=== PATIENT | female | born 1970 | race Caucasian/White ===

== ENCOUNTER → 2022-02-26 16:42 | Outpatient (BNVA) | payer OTHER, SELFPAY | PROVIDERS: PCP Internal Medicine; Visit Provider Psychiatry & Neurology Psychiatry | DX: F41.1 Generalized anxiety disorder (principal); F32.4 Major depressive disorder, single episode, in partial remission | CPT/HCPCS: 90833 ==

== ENCOUNTER → 2022-05-02 16:26 | Outpatient (BNVA) | payer OTHER, SELFPAY | PROVIDERS: PCP Internal Medicine; Visit Provider Psychiatry & Neurology Psychiatry | DX: F32.4 Major depressive disorder, single episode, in partial remission (principal) ==

== ENCOUNTER → 2022-07-08 15:26 | Outpatient (BNVA) | payer OTHER, SELFPAY | PROVIDERS: PCP Internal Medicine; Visit Provider Psychiatry & Neurology Psychiatry | DX: Z13.89 Encounter for screening for other disorder (principal) ==

== ENCOUNTER → 2022-09-19 10:21 | Outpatient (BNVA) | payer OTHER, SELFPAY | PROVIDERS: PCP Internal Medicine; Visit Provider Psychiatry & Neurology Psychiatry ==

== ENCOUNTER 2022-12-24 13:28 | Outpatient (AMB) | payer OTHER, SELFPAY ==
--- OUTSIDE RECORDS SUMMARY | 2022-12-24 13:31 | XMS_ITS | Continuity of Care Document ---
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 Name Role Phone Ro Jeff HOFFMAN Primary Care Physician Encounter 08/23/22 - 08/30/22 [facility] [address], [address] [place] [address]- Attending Physician: Roslaie Estrella MD Admitting Physician: Rosalie Estrella MD Referring Physician: Rosalie Estrella MD Allergies, Adverse Reactions, Alerts Substance Reaction Severity Status erythromycin violent vomiting Active povidone iodine topical anaphylaxis Acti ve Wellbutrin vertigo, ?seizures Active Augmentin yeast infections Active Levaquin very sick Active Bactrim swelling, trouble breathing Active Contrast Dye Anaphylaxis Active Immunizations Given and Recorded Vaccine Date Status Refusal Reason Hepatitis A Adult Vaccine 1 10/05/97 Given Hepatitis A Adult Vaccine 02/10/97 Given Meningococcal Polysaccharide Vaccine 2 02/10/97 Gi chanel 1Result Comment: [10/08/2012] hep A #2 2Result Comment: [10/08/2012] hep A #1 Medications buspar buspar, 15 mg, 2 times a day, Refills 0, Maintenance, 02/06/21 12:30:00 EDT, Supply Start Date: 02/06/21 Status: Ordered Effexor = 150 mg, By Mouth, Daily in AM, 0 Refills, Maintenance, 09/26/17 16:14:26 EDT Start Date: 09/26/17 Status: Ordered glipiZIDE 10 mg oral tablet 1 tablet = 10 mg, By Mouth, 2 times a day, 0 Refills, Maintenance, 02/06/21 12:28:00 EDT, Partial fill upon patient request if the prescription is for a schedule II opioid drug. Start Date: 02/06/21 Status: Ordered iron iron, Refills 0, Maintenance, 02/06/21 12:31:00 EDT, Supply Start Date: 02/06/21 Status: Ordered l-methylfolate = 10 mg, By Mouth, Daily, 0 Refills, Maintenance, 09/26/17 16:10:18 EDT Start Date: 09/26/17 Status: Ordered metFORMIN 500 mg oral tablet 2 tablet = 1,000 mg, By Mouth, 2 times a day, 0 Refills, Maintenance, 09/26/17 16:10:59 EDT Start Date: 09/26/17 Status: Ordered Metoprolol Tartrate 25 mg oral tablet 0.5 tablet = 12.5 mg, By Mouth, 2 times a day, # 30 tablet, 0 Refills, Maintenance, 03/21/21 11:52:00 EST, Tablet, [id number], Partial fill upon patient request if the prescription is for a schedule II opioid drug., 158, cm, 02/06/21 12:20:00... Start Date: 03/21/21 Status: Ordered Neurontin 300 mg oral capsule 300 mg, 1, capsule, By Mouth, Daily at bedtime, Refills 0, Maintenance, 09/26/17 16:17:26 EDT Start Date: 09/26/17 Status: Ordered omeprazole 20 mg oral delayed release tablet 1 tablet = 20 mg, By Mouth, Daily, 0 Refills, Maintenance, 09/26/17 16:09:38 EDT Start Date: 09/26/17 Status: Ordered pravastatin 20 mg oral tablet 20 mg, 1, tablet, By Mouth, Daily at bedtime, # 30 tablet, Refills 0, Maintenance, 09/26/17 16:18:18 EDT Start Date: 09/26/17 Status: Ordered Rexulti 1 mg oral tablet 1 tablet = 1 mg, By Mouth, Daily at bedtime, 0 Refills, Maintenance, 09/26/17 16:19:54 EDT Start Date: 09/26/17 Status: Ordered Trulicity Pen 0.75 mg/0.5 mL subcutaneous solution 0.5 mL = 0.75 mg, Subcutaneous Injection, Every Friday, 0 Refills, Maintenance, 11/10/18 12:02:27 EDT, Solution Start Date: 11/10/18 Status: Ordered Vitamin B12 0 Refills, Maintenance, 02/06/21 12:30:00 EDT, Partial fill upon patient request if the prescription is for a schedule II opioid drug. Start Date: 02/06/21 Status: Ordered Vitamin D3 = 2,000 International_Units, By Mouth, Daily, 0 Refills, Maintenance Start Date: 01/08/13 Status: Ordered Problem List Condition Confirmation Course Effective Dates Status H ealth Status Informant Hyperlipidemia Confirmed Active Hypertension Confirmed Active SVT (supraventricular tachycardia) Confirmed Active Results Radiology Reports * Exam Date Time Procedure Performing Provider Status 08/23/22 8:11 AM MM Digital Mammo Screening Jo Carter; Jason (Verified) Notes: (MM Digital Mammo Screening) Reason For Exam: Routine screening mammogram RESULT: MM Digital Mammo Screening PROCEDURE: MM Digital Mammo Screening INDICATION: Screening for breast cancer. No known palpable abnormalities. COMPARISON: Prior mammograms dating back to 06/22/2018. TECHNIQUE: Full-field digital CC and MLO 3-D tomosynthesis images of both breasts were acquired. Computer-aided detection (CAD) was utilized in the interpretation of this study. DENSITY: The breast tissue contains scattered areas of fibroglandular density. FINDINGS: No suspicious masses, suspicious microcalcifications, or areas of architectural distortion are seen in either breast to suggest malignancy. IMPRESSION: No mammographic evidence of malignancy. RECOMMENDATION: Annual mammographic screening BI-RADS: 1 (Negative) Lay letter mailed to patient WSN: [id number] Ordering Physician: Rosalie Estrella MD Dictated By: Radha Buitrago MD Dictated Date/Time: 08/23/22 8:40 am Reviewed By: Radha Buitrago MD Signed By: Radha Buitrago MD Signed Date/Time: 08/23/22 8:40 am Transcribed By: DEBBY Quantitative Researcher Date/Time: 08/23/22 8:38 am Birads: MG Breast Screening * BHSPowerscribe , CIS S: TRANSCRIBE Radha Buitrago MD: VERIFY Event Display: Result: Authored Date: [id number] PROCEDURE: MM Digital Mammo Screening INDICATION: Screening for breast cancer. No known palpable abnormalities. COMPARISON: Prior mammograms dating back to 06/22/2018. TECHNIQUE: Full-field digital CC and MLO 3-D tomosynthesis images of both breasts were acquired. Computer-aided detection (CAD) was utilized in the interpretation of this study. DENSITY: The breast tissue contains scattered areas of fibroglandular density. FINDINGS: No suspicious masses, suspicious microcalcifications, or areas of architectural distortion are seen in either breast to suggest malignancy. IMPRESSION: No mammographic evidence of malignancy. RECOMMENDATION: Annual mammographic screening BI-RADS: 1 (Negative) Lay letter mailed to patient WSN: [id number] Ordering Physician: Rosalie Estrella MD Dictated By: Radha Buitrago MD Dictated Date/Time: 08/23/22 8:40 am Reviewed By: Radha Buitrago MD Signed By: Radha Buitrago MD Signed Date/Time: 08/23/22 8:40 am Transcribed By: DEBBY Quantitative Researcher Date/Time: 08/23/22 8:38 am Birads: Patient Care team information Care Team Personnel Name: Hailey Dias RN Position: [facility] RN Member Role: Primary Care Nurse Name: Gloria Persaud Position: [facility] OB OA Member Role: Primary Care Nurse Name: Jeff Yi MD Position: [facility] Physician (General Medicine) Member Role: PCP Address: Address: [address] [place] [address] Name: Isamar Robbins RN Position: [facility] Hospital Edi Manager Member Role: Primary Care Nurse Care Team Related Persons Name: DAISY LEMONS Address: home [address] [place] [address] Name: ANN-MARIE BARR Address: home [address] [place] [address]
--- OUTSIDE RECORDS SUMMARY | 2022-12-24 13:31 | XMS_ITS | Continuity of Care Document ---
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 Name Role Phone Ro Jeff HOFFMAN Primary Care Physician Encounter 11/11/22 - 11/18/22 [facility] [address], [address] [place] [address]- Attending Physician: Veronica Morel MD Admitting Physician: Veronica Morel MD Referring Physician: Veronica Morel MD Allergies, Adverse Reactions, Alerts Substance Reaction [...] Refills, Maintenance, 03/21/21 11:52:00 EST, Tablet, [id number], Partial fill upon patient request [...] Exam Date Time Procedure Performing Provider Status 11/11/22 9:37 AM US Liver Ifeoma Durham; Modified Notes: (US Liver) Reason For Exam: ELEVATED SERUM TRANSAMINASE R74.01 RESULT: US Liver US Liver Reason: ELEVATED SERUM TRANSAMINASE R74.01; Clinical Question(s): Other: COMPARISON: None. IMAGING TECHNIQUE: Grayscale and color Doppler ultrasound examination of the liver. FINDINGS: Liver: Diffusely echogenic parenchyma. No suspicious lesion. Smooth hepatic contour. Main portal vein patent with normal hepatopetal direction of flow. Biliary Tree: No intrahepatic or extrahepatic bile duct dilation is identified. Common duct: 0.3 cm. IMPRESSION: Echogenic liver likely representing hepatic steatosis. No suspicious lesion. WSN: [id number] Ordering Physician: Veronica Morel Dictated By: Neo Kay MD Dictated Date/Time: 11/11/22 10:31 a Reviewed By: Neo Kay MD Signed By: Neo Kay MD Signed Date/Time: 11/11/22 10:31 am Transcribed By: DEBBY Transcribed Date/Time: 11/11/22 10:22 am Patient Care team information Care Team Personnel Name: Hailey Dias RN Position: [facility] RN Member Role: Primary Care Nurse Name: Jeff Yi MD Position: [facility] Physician - Primary Care Member Role: PCP Address: Address: [address] [place] [address] Name: Isamar Robbins RN Position: [facility] Hospital Welder/Fabricator Member Role: Primary Care Nurse Name: Veronica Morel MD Position: [facility] Physician - Endocrinology Med Service: Endocrinology Member Role: Referring Physician Address: Address: [address] [place] [address] [facility] [place] [address]- Care Team Related Persons Name: DAISY LEMONS Address: home [address] [place] [address] Name: ANN-MARIE BARR Address: home [address] [place] [address]
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
== END 2022-12-24 15:05 | disposition home or self-care (01) ==
LOC: HO.HOP 13:28
PROVIDERS: PCP Internal Medicine; Visit Provider Psychiatry & Neurology Psychiatry
DX: F41.1 Generalized anxiety disorder (principal); F32.4 Major depressive disorder, single episode, in partial remission
CPT/HCPCS: 99499

== ENCOUNTER → 2022-12-24 13:28 | Outpatient (BNVA) | payer OTHER, SELFPAY | PROVIDERS: PCP Internal Medicine; Visit Provider Psychiatry & Neurology Psychiatry ==

== ENCOUNTER 2023-02-26 12:51 | Outpatient (AMB) | payer OTHER, SELFPAY ==
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
== END 2023-02-26 17:19 | disposition home or self-care (01) ==
LOC: HO.HOP 12:51
PROVIDERS: PCP Internal Medicine; Visit Provider Psychiatry & Neurology Psychiatry
DX: F32.4 Major depressive disorder, single episode, in partial remission (principal); E78.00 Pure hypercholesterolemia, unspecified
CPT/HCPCS: 90833; 99213

== ENCOUNTER → 2023-02-26 12:51 | Outpatient (BNVA) | payer OTHER, SELFPAY | PROVIDERS: PCP Internal Medicine; Visit Provider Psychiatry & Neurology Psychiatry ==

== ENCOUNTER 2023-05-12 15:31 | Outpatient (AMB) | payer OTHER, SELFPAY ==
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
== END 2023-05-12 15:32 | disposition home or self-care (01) ==
LOC: HO.HOP 15:31
PROVIDERS: PCP Internal Medicine; Visit Provider Psychiatry & Neurology Psychiatry
DX: F41.1 Generalized anxiety disorder (principal); F32.4 Major depressive disorder, single episode, in partial remission
CPT/HCPCS: 99214

== ENCOUNTER → 2023-05-12 15:31 | Outpatient (BNVA) | payer OTHER, SELFPAY | PROVIDERS: PCP Internal Medicine; Visit Provider Psychiatry & Neurology Psychiatry ==

== ENCOUNTER 2023-07-28 16:39 | Outpatient (AMB) | payer OTHER, SELFPAY ==
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
== END 2023-07-28 16:40 | disposition home or self-care (01) ==
LOC: HO.HOP 16:39
PROVIDERS: PCP Internal Medicine; Visit Provider Psychiatry & Neurology Psychiatry
DX: F41.1 Generalized anxiety disorder (principal); F32.4 Major depressive disorder, single episode, in partial remission
CPT/HCPCS: 99214

== ENCOUNTER → 2023-07-28 16:39 | Outpatient (BNVA) | payer OTHER, SELFPAY | PROVIDERS: PCP Internal Medicine; Visit Provider Psychiatry & Neurology Psychiatry ==

== ENCOUNTER 2023-09-01 13:27 | Outpatient (AMB) | payer OTHER, SELFPAY ==
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
== END 2023-09-01 14:24 | disposition home or self-care (01) ==
LOC: HO.HOP 13:27
PROVIDERS: PCP Internal Medicine; Visit Provider Psychiatry & Neurology Psychiatry
DX: F32.4 Major depressive disorder, single episode, in partial remission (principal); F41.1 Generalized anxiety disorder
CPT/HCPCS: 90833; 99213

== ENCOUNTER → 2023-09-01 13:27 | Outpatient (BNVA) | payer OTHER, SELFPAY | PROVIDERS: PCP Internal Medicine; Visit Provider Psychiatry & Neurology Psychiatry ==

== ENCOUNTER 2023-12-23 13:59 | Outpatient (AMB) | payer OTHER, SELFPAY ==
--- OUTSIDE RECORDS SUMMARY | 2023-12-23 14:01 | XMS_ITS | Continuity of Care Document ---
Author Organization [facility] [place] [address] [place] [address]- Care Team Providers Care Packaging Machine Supplies Distributor Name Role Phone Ro Jeff HOFFMAN Primary Care Physician Encounter 08/25/23 - 09/01/23 [facility] [address], [address] [place] [address]- Attending Physician: Rosalie Estrella MD Admitting Physician: Rosalie Estrella MD Referring Physician: Rosalie Estrella MD Allergies, Adverse Reactions, Alerts Substance Reaction Severity Status erythromycin violent vomiting Active Augmentin yeast infections Active Levaquin very sick Active Contrast Dye Anaphylaxis Active povidone iodine topical anaphylaxis Acti ve Wellbutrin vertigo, ?seizures Active Bactrim swelling, trouble breathing Active Immunizations Given and Recorded Vaccine Date [...] Refills, Maintenance, 03/21/21 11:52:00 EST, Tablet, [id number], Partial fill upon patient request [...] Exam Date Time Procedure Performing Provider Status 08/25/23 8:05 AM MM Digital Mammo Screening Jo Carter (Verified) Notes: (MM Digital Mammo Screening) Reason For Exam: Z12.31 SCREENING RESULT: MM Digital Mammo Screening PROCEDURE: MM Digital Mammo Screening INDICATION: Screening for breast cancer. No known palpable abnormalities. COMPARISON: Multiple prior studies dating back to 08/21/2020. TECHNIQUE: Full-field digital CC and MLO 3D tomosynthesis images of both breasts were acquired. Computer-aided detection (CAD) was utilized in the interpretation of this study. DENSITY: There are scattered areas of fibroglandular density. FINDINGS: No suspicious masses, suspicious microcalcifications, or areas of architectural distortion are seen in either breast to suggest malignancy. IMPRESSION: No mammographic evidence of malignancy. RECOMMENDATION: Annual mammographic screening BI-RADS: 1 (Negative) Lay letter mailed to patient WSN: [id number] Ordering Physician: Rosalie Estrella MD Dictated By: Eddy Leon MD Dictated Date/Time: 08/25/23 11:09 am Reviewed By: Eddy Leon MD Signed By: Eddy Leon MD Signed Date/Time: 08/25/23 11:09 am Transcribed By: DEBBY Refining Equipment Operator Date/Time: 08/25/23 11:07 am Birads: Patient Care team information Care Team Personnel Name: Hailey Dias RN Position: [facility] RN Member Role: Primary Care Nurse Name: Jeff Yi MD Position: S Physician - Primary Care Member Role: PCP Address: Address: [address] [place] [address] Name: Isamar Robbins RN Position: [facility] Undercover Agent Member Role: Primary Care Nurse Care Team Related Persons Name: DAISY LEMONS Address: home [address] [place] [address] Name: ANN-MARIE BARR Address: home [address] [place] [address]
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
== END 2023-12-23 14:43 | disposition home or self-care (01) ==
LOC: HO.HOP 13:59
PROVIDERS: PCP Internal Medicine; Visit Provider Psychiatry & Neurology Psychiatry
DX: F41.1 Generalized anxiety disorder (principal); F32.4 Major depressive disorder, single episode, in partial remission
CPT/HCPCS: 90833; 99213

== ENCOUNTER → 2023-12-23 13:59 | Outpatient (BNVA) | payer OTHER, SELFPAY | PROVIDERS: PCP Internal Medicine; Visit Provider Psychiatry & Neurology Psychiatry ==

== ENCOUNTER 2024-03-03 15:02 | Outpatient (AMB) | payer OTHER, SELFPAY ==
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
== END 2024-03-03 17:31 | disposition home or self-care (01) ==
LOC: HO.HOP 15:02
PROVIDERS: PCP Internal Medicine; Visit Provider Psychiatry & Neurology Psychiatry
DX: F32.4 Major depressive disorder, single episode, in partial remission (principal); F41.1 Generalized anxiety disorder
CPT/HCPCS: 90833; 99213

== ENCOUNTER 2024-09-27 13:29 | Outpatient (AMB) | payer OTHER, SELFPAY ==
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
--- OUTSIDE RECORDS SUMMARY | 2024-09-27 15:13 | XMS_ITS | Data Portability ---
Author Organization [place] [facility] [place] Address [address] [place] [address] Care Team Providers Care Physical Therapy Supervisor Name Role Phone LIBERTAD SEGOVIA Primary Care Provider LIBERTAD SEGOVIA Referring Provider Assessment Encounter Date Assessment Date Assessment LastModified by Organization Details LastModified Time 07/08/2024 07/08/2024 53-year-old female with chronic low back and right SI joint pain. She is pain that radiates to the groin though I am more suspicious this is stemming from her lumbar and SI joint complaints. Her exam is not focally impressive for hip osteoarthritis and her radiographs are not significant for this. I reviewed findings with her and we discussed treatment options. She is open to a trial of physical therapy, however she would also like to pursue a repeat injection. Referral was provided for these today. She will follow-up in 6 weeks. Questions invited and answered. Patient verbalizes understanding and agreement with plan. Patient was seen and evaluated by Avani Caldera PA-C in indirect conjunction with Documenting Provider: Travis Mitchell MD He/She agrees with history, physical examination, tests/diagnostic imaging, and treatment plan. Not available 07/08/2024 09:22:45 Plan of Treatment Reminders Order Date Submit Date Provider Last Modified By Organization Details Last Modified Time Details Appointments None recorded. Lab None recorded. Referral orthopedi c physical therapist referral - Lesley bose Comments: Chronic low back pain, 1 year right SI joint and hip pain 2024 025 [email or web address] Not available 09:18:43 Procedures intra-art icular injection , sacroilia c joint (PROC) - right SI joint steroid injection 2024 025 [facility], [address] [facility], [place], [address], 15:50:55 Surgeries None recorded. Imaging None recorded. Medication Orders None recorded. Patient TargetsNo targets recorded. Patient Instructions Encounter Date Encounter Id Patient Instructions Last Modified By Organization Details Last Modified Time 07/08/2024 [id number] views of the right hip were obtained at an outside facility 06/10/2024 and reviewed by me in the office today. Well-maintained joint space. There is a small well-circumscribed calcification at the right superior acetabulum consistent with osteophyte or chronic avulsion injury. 2 views of the lumbar spine were also obtained and reviewed by me today. These are largely unremarkable. Minimal L5-S1 degeneration. Not available 07/08/2024 09:24:10 Reason for Referral Additional Comments: Chronic low back pain, 1 year right SI joint and hip pain Referring Physician: Avani Caldera, Orthopedic Surgery, Encounter Date: 07/08/2024 Results Created Date Observation Date Name Description Value Unit Range Abnormal Flag Note LastModifiedBy Organization Detail LastModifiedTime 07/02/1906/10/2024 XR, hip, unila teral , 2 or 3 view No observ ation record ed. [email or web address] [facility] [address] [facility] [address], [place], [address], 07/01/2024 13:00:58 Result Notes None recorded. Problems Name Problem SNOMED Code Status Onset Date Resolution Date Notes Provider Name and Address Organization Details Recorded Time Chronic low back pain 882896334 Active [address], [facility] [place], [address], [place] [facility], P 09:17:01 Sacroiliac disorder 998513093 Active [address], [place], [address], [place] [facility], P 5 09:17:07 Pain of hip region 78017797 Active 025 AVANI CALDERA PA-C [address], [place], [address], [place] [facility], P 5 09:17:13 Low back pain 655429763 Active 025 AVANI CALDERA PA-C [address], [place], [address], [place] [facility], P 5 09:17:23 Problem Notes None recorded. Medical Equipment None Reported. Medications Name Sig Start Date Stop Date Status Note LastModified by Organization Details LastModified Time pravastatin 40 mg tablet TAKE 1 TABLET BY MOUTH EVERY DAY active Not Available Not Available No t Available venlafaxine ER 150 mg capsule,exte nded release 24 hr 150 MG ORALLY DAILY active Not Available Not Available No t Available trazodone 100 mg tablet 100 - 200 MG ORALLY BEDTIME NEEDED FOR SLEEP active Not Available Not Available No t Available buspirone 30 mg tablet TAKE 1 TABLET BY MOUTH TWICE A DAY FOR 90 DAYS active Not Available Not Available No t Available gabapentin 300 mg capsule 300 MG ORALLY BEDTIME active Not Available Not Available No t Available Precision Xtra Test strips USE TO TEST BLOOD SUGARS THREE TIMES DAILY DX:E11.9 active Not Available Not Available No t Available glipizide 5 mg tablet 1/2 TABLET BY MOUTH IN AM, 2 TABLETS IN PM active Not Available Not Available No t Available buspirone 15 mg tablet FOR 3 MONTHS ORALLY DIRECTED 1 MORNING 2 BEDTIME active Not Available Not Available No t Available Humulin N NPH U-100 Insulin KwikPen 100 unit/mL (3 mL) subcutaneous INJECT 26 UNITS SUBCUTANEOU SLY EVERY DAY active Not Available Not Available No t Available Rexulti 1 mg tablet TAKE 1 TABLET BY MOUTH EVERY DAY active Not Available Not Available No t Available BD Maribel 2nd Gen Pen Needle 32 gauge x 1 PEN NEEDLE TO INSULIN PEN ONE TIME A DAY active Not Available Not Available No t Available Mounjaro 7.5 mg/0.5 mL subcutaneous pen injector INJECT 7.5 MG SUBCUTANEOU SLY ONCE A WEEK DIRECTED active Not Available Not Available No t Available Mounjaro 5 mg/0.5 mL subcutaneous pen injector INJECT 5 MG SUBCUTANEOU SLY ONCE A WEEK DIRECTED active Not Available Not Available No t Available Mounjaro 10 mg/0.5 mL subcutaneous pen injector INJECT 10 MG SUBCUTANEOU SLY ONCE A WEEK DIRECTED active Not Available Not Available No t Available Vitals None Recorded Social History None recorded. Functional Status None recorded. Mental Status None recorded. Family History Nothing Reported. Medical History No medical history recorded. Gynecological HistoryNo gynecological history recorded. Obstetrics History GPAL:G 0 P 0 0 0 0 Past Encounters Encounter ID Performer Location Encounter Start Date Encounter Closed Date Diagnosis/Indication Diagnosis SNOMED-CT Code Diagnosis ICD10 Code Diagnosis Note [id number] AVANI CALDERA PA-C [address] [address] 07/08/2024 08:51:20 07/08/2024 09:17:06 Chronic low back pain 900644365 M54.50 G89.29 Sacroiliac disorder 2027 01955 M53.3 Pain of hip region 29115 002 M25.551 G89.29 Health Concerns Section Related Observation LastModified by Organization Detai ls LastModified Time None Recorded Concern Status LastModified by Organization Details LastModified Time None Recorded Advance Directives Directive None Recorded Payers Encounter Date Sequence Insurance Name Policy Number Policy King Covered Member ID King Member ID Guarantor Name 07/08/2024 1 [employer] (POS II) [id number] Jaspreet Schreiber [id number] Maria Elena Schreiber Notes Date Note Type Note Provider Name and Address Organization Details Recorded Time 07/08/2024 text/html 53-year-old prudencio beltran presents to the office today for evaluation of chronic right hip pain onset without precipitating event. She states she has chronic low back pain, however this feels distinguishable a different. It starts over the lateral hip and radiates around the front through her groin. She notices it most when she is sedentary. It resolves with movement and activity. She takes Aleve as needed. She has had no formal evaluation or treatment to date. She recalls many years ago she was treated with a right SI joint injection for similar pain and had excellent relief for years. AVANI CALDERA PA-C [address], [place], [address], [place] [facility] 07/08/2024 09:24:27 OBGyn Episode No OBEpisode recorded.
== END 2024-09-27 14:12 | disposition home or self-care (01) ==
LOC: HO.HOP 13:29
PROVIDERS: PCP Internal Medicine; Visit Provider Psychiatry & Neurology Psychiatry
DX: F32.4 Major depressive disorder, single episode, in partial remission (principal)
CPT/HCPCS: 99214

== ENCOUNTER → 2024-09-27 13:29 | Outpatient (BNVA) | payer OTHER, SELFPAY | PROVIDERS: PCP Internal Medicine; Visit Provider Psychiatry & Neurology Psychiatry ==

== ENCOUNTER 2024-11-22 11:15 | Outpatient (AMB) | payer OTHER, SELFPAY ==
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
--- OUTSIDE RECORDS SUMMARY | 2024-11-22 12:12 | XMS_ITS | Clinical Summary ---
Author Organization [facility] ity Address [address] [place] [address] Care Team Providers Care Safekeeping Clerk Name Role Phone Jeff Yi MD Primary Care Provider [phone] Social History Tobacco Use Types Packs/Day Years Used Date Smoking Tobacco: Never Assessed Comments Unknown Sex and Gender Information Value Date Recorded Sex Assigned at Not on file Legal Sex Female 10:25 PM EST Gender Identity Not on file Sexual Orientation Not on file Plan of Treatment Health Maintenance Due Date Last Done Comments Breast Cancer Screening 1970 DTaP,Tdap,and Td Vaccines (1 - Tdap) 1989 Hepatitis B Vaccines (1 of 3 - 19+ 3-dose series) 1989 Cervical Cancer Screening: P ap Smear 10/07/1991 Pneumococcal Vaccine: 50+ Years (1 of 1 - PCV) 2020 Zoster Vaccines (1 of 2) 2020 COVID-19 Vaccine (3 - 2023-2 5 season) 2023 07/10/2020, 06/19/2020 Depression Screening 04/21/2024 Influenza Vaccine (#1) 2024 HIB Vaccines Aged Out No longer eligi ble based on patient's age to complete this topic HPV Vaccines Aged Out No longer eligi ble based on patient's age to complete this topic Hepatitis A Vaccines Aged Out No long er eligible based on patient's age to complete this topic IPV Vaccines Aged Out No longer eligi ble based on patient's age to complete this topic MMR Vaccines Aged Out No longer eligi ble based on patient's age to complete this topic Meningococcal ACWY Vaccine Aged Out N o longer eligible based on patient's age to complete this topic Meningococcal B Vaccine Aged Out No l onger eligible based on patient's age to complete this topic RSV Immunization Patients Under 20 months Aged Out No longer eligible b ased on patient's age to complete this topic Varicella Vaccines Aged Out No longer eligible based on patient's age to complete this topic Care Teams Safekeeping Clerk Relationship Specialty Start Date End Date Jeff Yi MD PCP - General Internal Medicine 08/21/20
--- OUTSIDE RECORDS SUMMARY | 2024-11-22 12:12 | XMS_ITS | Clinical Summary ---
Author Organization [facility] Address [address] [place] [address] Care Team Providers Care Side Door Worker Name Role Phone A, Unknown Practice Primary Care Provider Fazal jose Source Comments PLEASE NOTE, if this patient is a minor, it may be UNLAWFUL to discuss sensitive information that is contained in these records (such as FAMILY PLANNING, MENTAL HEALTH or SUBSTANCE ABUSE) with the minor patient's parent or other person without the patient's specific authorization.[facility] Social History Tobacco Use Types Packs/Day Years Used Date Smoking Tobacco: Never Assessed Social Connections Answer Date Recorded Social Connections and Isolation 0 02/10/2020 Financial Resource Strain Answer Date R ecorded Financial Resource Strain 0 2019 Stress Answer Date Recorded Stress 0 02/10/2020 Physical Activity Answer Date Recorded Physical Activity 0 02/10/2020 Food Insecurity Answer Date Recorded Food 0 02/10/2020 Transportation Needs Answer Date Record ed Transportation 0 02/10/2020 Housing Stability Answer Date Recorded Housing 0 02/10/2020 Safety and Environment Answer Date Harry rded Safety 0 02/10/2020 Utilities Answer Date Recorded Utilities 0 02/10/2020 Employment Answer Date Recorded Employment 0 02/10/2020 Comments Unknown Sex and Gender Information Value Date Recorded Sex Assigned at Not on file Legal Sex Female 12:06 PM PDT Gender Identity Female 02/09/2020 1:57 PM PDT Sexual Orientation Don't know 02/09/2020 1: 57 PM PDT Plan of Treatment Not on file Care Teams Side Door Worker Relationship Specialty Start Date End Date A, Unknown Practice PCP - General 02/08/20
--- OUTSIDE RECORDS SUMMARY | 2024-11-22 12:12 | XMS_ITS | Encounter Summary ---
Author Organization [facility] Address [address] [place] [address] Care Team Providers Care Private Branch Exchange Service Adviser Name Role Phone Jeff Yi MD Primary Care Provider [phone] Encounter Details Date Type Department Care Team (Late st Contact Info) Description 02/23/2024 Scanned Document [address] [id number] Provider, Generic Social History Tobacco Use Types Packs/Day Years Used Date Smoking Tobacco: Never Assessed Comments Unknown Sex and Gender Information Value Date Recorded Sex Assigned at Not on file Legal Sex Female 1:37 PM EDT Gender Identity Not on file Sexual Orientation Not on file documented as of this encounter Plan of Treatment Not on file documented as of this encounter Visit Diagnoses Not on filedocumented in this encounter Care Teams Private Branch Exchange Service Adviser Relationship Specialty Start Date End Date Jeff Yi MD [address] [place] [address] PCP - General Internal Medicine 12/06/15 documented as of this encounter
--- OUTSIDE RECORDS SUMMARY | 2024-11-22 12:12 | XMS_ITS | Clinical Summary ---
Author Organization [facility] Address [address] [place] [address] Care Team Providers Care Barbecue Cook Name Role Phone Unavailable Primary Care Provider Unavailabl e Immunizations Name Administration Dates Next Due Covid-19 (Pfizer) Dilution Required 07/10/2020,0 06/19/2020 Social History Tobacco Use Types Packs/Day Years Used Date Smoking Tobacco: Never Assessed Sex and Gender Information Value Date Recorded Sex Assigned at Not on file Gender Identity Not on file Sexual Orientation Not on file Job Start Date Occupation Industry Not on file Not on file Not on file Plan of Treatment Health Maintenance Due Date Last Done Comments Hepatitis B Vaccines (1 of 3 - 3-dose series) 1970 Hepatitis C Screening 1970 Depression Screening 1982 Preventative Health Evaluation 1988 DTap / Tdap / Td (1 - Tdap) 1989 Cervical Cancer Screening (Pap Smear) 10/07/1991 Colon Cancer Screening (Colonoscopy) 10/07/2015 Breast Cancer Screening (Mammogram) 2020 Shingrix-Zoster Vaccine (1 o f 2) 2020 COVID-19 Vaccine (3 - 2023-2 5 season) 2023 07/10/2020, 06/19/2020 Influenza Vaccine (#1) 2024 Pneumococcal Vaccine Aged Out No long er eligible based on patient's age to complete this topic RSV Ped < 20 months Aged Out No longe r eligible based on patient's age to complete this topic
--- OUTSIDE RECORDS SUMMARY | 2024-11-22 12:12 | XMS_ITS | Clinical Summary ---
Author Organization [facility] Address [address] [place] [address] Care Team Providers Care Mail Room Clerk Name Role Phone Zak Love Primary Care Provider Unav ailable Social History Tobacco Use Types Packs/Day Years Used Date Smoking Tobacco: Never Assessed Comments Unknown Sex and Gender Information Value Date Recorded Sex Assigned at Not on file Legal Sex Female 7:24 PM EDT Gender Identity Not on file Sexual Orientation Not on file Plan of Treatment Health Maintenance Due Date Last Done Comments Hepatitis C Screening 1970 Pap Smear 1986 DTaP/Tdap/Td (1 - Tdap) 1988 Hep B (1 of 3 - 19+ 3-dose series) 1989 Mammogram/Breast Imaging 2010 Colon Cancer Screening 10/07/2015 Pneumococcal 50+ years (1 of 1 - PCV) 2020 Zoster (Shingrix) (1 of 2) 2020 COVID-19 Vaccine ( - 2023-2 5 season) 2023 Influenza (#1) 2024 HPV Vaccine (No Doses Required) Completed Hep A Aged Out No longer eligi ble based on patient's age to complete this topic Hib Aged Out No longer eligi ble based on patient's age to complete this topic Meningococcal ACWY Aged Out No longer eligible based on patient's age to complete this topic Care Teams Mail Room Clerk Relationship Specialty Start Date End Date Zak Love PCP - General 11/25/22
--- OUTSIDE RECORDS SUMMARY | 2024-11-22 12:12 | XMS_ITS ---
Author Name [facility] Organization Unknown History of Medication Use Medication Directions Dispensed Refills Start Date End Date Stat us Rexulti 1 MG tablet Take 1 mg by mouth daily. 01/12/2024 active glipiZIDE (GLUCOTROL XL) 2.5 MG 24 hr tablet Take 2.5 mg by mouth every morning with breakfast. aborted buspirone 15 mg tablet FOR 3 MONTHS ORALLY DIRECTED 1 MORNING 2 BEDTIME active buspirone 30 mg tablet TAKE 1 TABLET BY MOUTH TWICE A DAY FOR 90 DAYS active gabapentin 300 mg capsule 300 MG ORALLY BEDTIME active glipizide 5 mg tablet 1/2 TABLET BY MOUTH IN AM, 2 TABLETS IN PM active Humulin N NPH U-100 Insulin KwikPen 100 unit/mL (3 mL) subcutaneous INJECT 26 UNITS SUBCUTANEOUSLY EVERY DAY active Mounjaro 10 mg/0.5 mL subcutaneous pen injector INJECT 10 MG SUBCUTANEOUSLY ONCE A WEEK DIRECTED active Mounjaro 5 mg/0.5 mL subcutaneous pen injector INJECT 5 MG SUBCUTANEOUSLY ONCE A WEEK DIRECTED active Mounjaro 7.5 mg/0.5 mL subcutaneous pen injector INJECT 7.5 MG SUBCUTANEOUSLY ONCE A WEEK DIRECTED active pravastatin 40 mg tablet TAKE 1 TABLET BY MOUTH EVERY DAY active Precision Xtra Test strips USE TO TEST BLOOD SUGARS THREE TIMES DAILY DX:E11.9 active Rexulti 1 mg tablet TAKE 1 TABLET BY MOUTH EVERY DAY active trazodone 100 mg tablet 100 - 200 MG ORALLY BEDTIME NEEDED FOR SLEEP active venlafaxine ER 150 mg capsule,extended release 24 hr 150 MG ORALLY DAILY ac tive ergocalciferol (VITAMIN D2,DRISDOL) 93137 units Cap Take 50,000 Units by mouth once a week. active L-Methylfolate 15 mg completed Neurontin (capsule) 300 mg comp leted omeprazole (capsule,delayed release (e.c.)) 10 mg completed OMEprazole (PriLOSEC OTC) 20 MG tablet Take 20 mg by mouth every morning before breakfast. active venlafaxine (EFFEXOR-XR) 150 MG 24 hr capsule Take 150 mg by mouth daily. active vitamin F39-ahzzv acid completed Vitamin D3 completed Allergies Allergen Reaction Severity Comment Documented Date Source Statu s BUPROPION OTHER (SEE COMMENTS) seizures 12/14/2015 [facility] active IODINATED CONTRAST MEDIA ANAPHYLAXIS [facility] LEVOFLOXACIN SWELLING [facility] SULFAMETHOXAZOLE-T RIMETHOPRIM SWELLING [facility] BACTRIM [facility] IV DYE [facility] LEVAQUIN [facility] WELLBUTRIN [facility] Problems Problem Status Onset Date Problem Type Date of Resolution Source Hip pain active 2024-07-08 ProblemAct [facility] Sacroiliac disorder active 2024-07-08 ProblemAct [facility] Low back pain active 2024-07-08 ProblemAct [facility] Chronic low back pain active 2024-07-08 ProblemAct [facility] Hypertension active 2024-02-23 ProblemAct [facility] SVT (supraventricular tachycardia) active 2024-02-23 ProblemAct [facility] Type 2 diabetes mellitus without complication, with long-term current use of insulin (HCC) active EncounterDiagnosisAct [facility] GERD (gastroesophageal reflux disease) active 2015-12-14 ProblemAct [facility] Hyperlipidemia active 2024-02-[address] Subclinical iodine-deficiency hypothyroidism active 2015-12-14 ProblemAct [facility] Major depressive disorder, recurrent episode, moderate active 2015-12-14 ProblemAct [facility] Encounters Encounter Type Encounter Reason Primary Diagnosis Location Date Ambulatory [facility] 11/22/2024 Ambulatory [facility] 08/08/2024 Ambulatory [facility] 07/23/2024 Ambulatory [facility] 07/09/2024 Ambulatory [facility] 07/08/2024 Ambulatory [facility] 07/08/2024 Ambulatory [facility] 07/07/2024 Ambulatory [facility] 07/07/2024 Ambulatory [facility] 07/07/2024 Ambulatory [facility] 07/07/2024 Ambulatory [facility] 07/05/2024 Ambulatory [facility] 06/23/2024 Ambulatory [facility] 06/16/2024 Ambulatory [facility] 02/25/2024 Ambulatory Type 2 diabetes mellitus without complications Type 2 diabetes mellitus without complications [facility] 02/23/2024 Ambulatory [facility] 11/14/2023 Ambulatory [facility] 10/15/2023 Care Team Organization Name Specialty Phone Email Start Date End Da te [facility] 02/24/2024 07/07/2024 [facility] 02/23/2024 [facility] 2023 [facility] 10/09/2023
== END 2024-11-22 11:20 | disposition home or self-care (01) ==
LOC: HO.HOP 11:15
PROVIDERS: PCP Internal Medicine; Visit Provider Psychiatry & Neurology Psychiatry
DX: F42.8 Other obsessive-compulsive disorder (principal); F32.4 Major depressive disorder, single episode, in partial remission; F41.1 Generalized anxiety disorder
CPT/HCPCS: 99214

== ENCOUNTER 2025-02-14 10:28 | Outpatient (AMB) | payer OTHER, SELFPAY ==
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
--- OUTSIDE RECORDS SUMMARY | 2025-02-14 12:39 | XMS_ITS | Continuity of Care Document ---
Author Organization [facility] [address] [place] [address] Phone [phone] Care Team Providers Care Health Technician Hearing Name Role Phone Jeff Yi M.D. Care Team Information Industrial Arts Teacher + [phone] Problems Active Problems Provider Date Fibromyalgia Veronica Watson M.D. Ons et: 01/21/2022 Polycystic ovary syndrome Veronica Watson M.D. Onset: 01/21/2022 Gastroesophageal reflux disease Veronica Martinez M.D. Onset: 01/21/2022 Vertigo Veronica Watson M.D. Ons et: 01/21/2022 Migraine Veronica Watson M.D. Ons et: 01/21/2022 Anxiety Veronica Watson M.D. Ons et: 01/21/2022 Depressive disorder Veronica Watson M.D. Onset: 01/21/2022 Type 2 diabetes mellitus Veronica Watson M.D. Onset: 01/21/2022 Obstructive sleep apnea syndrome Veronica Machuca M.D. Onset: 01/21/2022 Subclinical hypothyroidism Veronica espino M.D. Onset: 01/21/2022 Aortic valve regurgitation Veronica espino M.D. 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 Employment ETOH Use Drinks 1 Alcoholic Beverage Per Week Tobacco Use Start: Unknown Patient has never smoked Allergies and adverse reactions Active Allergies Criticality Reaction Severity Comments Date Bactrim Unable to assess criticality 01/21/2022 Levaquin Unable to assess criticality 01/21/2022 Contrast Dye Unable to assess criticality 01/21/2022 Wellbutrin Unable to assess criticality 01/21/2022 Ambien Unable to assess criticality 06/10/2024 Haldol Unable to assess criticality 06/10/2024 Medications Active Medications SIG Qnty Indications Order ing Provider Date BD Vsnl4Qcu 1 Pen Needle To Insulin Pen One Time A Day 100units E11Arpan Watson M.D. 08/26/2024 Hoaqjbpk82ky/0.5ML Solution Auto-Inject inject 10 mg subcutaneously once a week as directed 6ml E11Arpan Watson M.D. 06/10/2024 Precision Xtra Blood Glucose Test StripsStrips use to test blood sugars three times daily Dx:E11.9 300units E11Arpan Watson M.D. 09/24/2023 Dexcom G7 ReceiverDevice use for sugar reading dx e11.65 1units Veronica Watson M.D. 02/11/2023 Dexcom G7 SensorMisc one to skin every 1 0 days dx e11.65 3units Veronica Watson M.D. 02/11/2023 BD Pen Needle/Maribel/Ultra -Fine/32G X 4mm32G X 4 mm Misc 1 pen needle to insulin pen one time a day 100units Patience Watson M.D. 05/14/2022 Humulin N Ncututi164Mfmg/ML Supn Inject 10 Units Subcutaneously Daily 30ml E11Arpan Watson M.D. 12/12/2021 Precision Xtraw/Device Kit Use Twice Daily 1units Patience Watson M.D. 11/20/2021 Onetouch UltraStrips 1 to skin twice a day 200units Jimmy Watson M.D. 11/08/2021 Buspirone NRB01vz Tablets Take 1 Tablet Orally 2 Times A Day Unknown Pravastatin Xwbbqr68oi Tablets Take 1 Tablet By Mouth Every Day AT Bedtime Unknown Trazodone JTT087lv Tablets take 1 tablets by mouth at bedtime Veronica Watson M.D. L-Euavetctwrcr92tj Tablets 1 qd Veronica Watson M.D. Vitamin B 54401hrs Tablets 1 by mouth every day Veronica Watson M.D. Vitamin X608evl (1000 Ut) Capsules 3 by mouth every day 100capcarlos alberto Watson M.D. Ribhbbkfse53we Capsules DR 1 by mouth every day Veronica Watson M.D. KP Ferrous Ghkypmx142(65Fe) mg Tablets 1 by mouth every day Vreonica Watson M.D. Akiivvssug713ms Capsules 1 cap by mouth at bedtime as directed 90lamine Watson M.D. Effexor MF208ug Caps ER 24HR 1 cap by mouth every day 30lamine Watson M.D. Qnojfdz1na Tablets Take 1/2 Tablet By Mouth Every Day Unknown Wgptujgpz6ti Tablets 1/2 Tablet By Mouth In Am, 2 Tablets In PM 225tabs Veronica Watson M.D. Vital Signs Date Vital Result Comment 02/09/2025 3:19pm BP Systolic 98 mmHg BP Diastolic 70 mmHg Heart Rate 98 /min Height 62 inches 5'2 Weight 115.50 lb BMI (Body Mass Index) 21.1 kg/m2 Results Test Acquired Date Facility Test Result H/L Range Note Hemoglobin A1c 02/09/2025 Inhouse Hemoglobin A1c 6.0% Glucose Fingerstick 02/09/2025 Inhouse Glucose Fingerstick 132 Glucose Fingerstick 10/07/2024 Inhouse Glucose Fingerstick 98 Hemoglobin A1c 10/07/2024 Inhouse Hemoglobin A1c 6.4% Albumin/Creatinin e Ratio,Urine 06/12/2024 [facility] Albumin, Urine 4.4 ug/mL Not Estab. Alb/Creat Ratio 4 mg/gcreat 0-29 1 Glucose Fingerstick 06/10/2024 Inhouse Glucose Fingerstick 106 Hemoglobin A1c 06/10/2024 Inhouse Hemoglobin A1c 6.6% Glucose Fingerstick 02/04/2024 Inhouse Glucose Fingerstick 103 Hemoglobin A1c 02/04/2024 Inhouse Hemoglobin A1c 6.0% Glucose Fingerstick 10/09/2023 Inhouse Glucose Fingerstick 97 Hemoglobin A1c 10/09/2023 Inhouse Hemoglobin A1c 6.4% Hemoglobin A1c 05/29/2023 Inhouse Hemoglobin A1c 7.0% Glucose Fingerstick 05/29/2023 Inhouse Glucose Fingerstick 102 Urinary Microalbumin 03/24/2023 [facility] Micro-Albumin <12.0 mg/L (<20) 2 Malb/Creat Ratio Unable to calcul <SEE NOTE> MG/GM (0-20) 3 Urine Creat For Micro Albumin 90.5 mg/dL Glucose Fingerstick 01/24/2023 Inhouse Glucose Fingerstick 114 Hemoglobin A1c 01/24/2023 Inhouse Hemoglobin A1c 7.7% Glucose Fingerstick 10/02/2022 Inhouse Glucose Fingerstick 143 Hemoglobin A1c 10/02/2022 Inhouse Hemoglobin A1c 7.0% Glucose Fingerstick 05/28/2022 Inhouse Glucose Fingerstick 283 Hemoglobin A1c 05/28/2022 Inhouse Hemoglobin A1c 6.8% Comprehensive Metabolic Panl 01/21/2022 [facility] Glucose 103 mg/dL High (70-99) BUN 11 mg/dL (6-20) Creatinine 0.7 mg/dL (0.5-1.0 ) Sodium 139 mmol/L (133-145 ) Potassium 3.9 mmol/L (3.6-5.2 ) Chloride 96 mmol/L Low (98-107) Bicarbonate 29 mmol/L (22-29) Anion Gap 14 (4-17) Albumin 5.0 GM/DL High (3.4-4.8 ) Calcium 10.1 mg/dL (8.6-10. 5) Bilirubin,Total 0.2 mg/dL (0-1.2 ) Total Protein 7.6 GM/DL (6.2-8.2 ) Ag Ratio 1.9 Ast 25 U/L (0-32) Alk Phos 91 U/L (35-104) Alt 54 U/L High (0-33) Estimated GFR Creatinine 105 ML/MIN/1.7 3M2 4 TSH With Reflex To FT4 01/21/2022 [facility] TSH With Reflex To FT4 3.93 uIU/mL (0.4-4.2 ) Urinary Microalbumin 01/21/2022 [facility] Micro-Albumin <12.0 mg/L (<20) 5 Malb/Creat Ratio Unable to calcul <SEE NOTE> MG/GM (0-20) 6 Urine Creat For Micro Albumin 12.9 mg/dL Glucose Fingerstick 01/21/2022 Inhouse Glucose Fingerstick 126 Hemoglobin A1c 01/21/2022 Inhouse Hemoglobin A1c 7.3 1 Normal: 0 - 29 Moderately increased: 30 - 300 Severely increased: >300 2 The urine microalbum in test is designed to monitor renal function. When screening for Bence Cantu proteinuria, urine electrophoresis is recommended. 3 Unable to calculate 4 Creatinine based est imated glomerular filtration (eGFR) in adults is calculated using the National [employer] recommended 2020 CKD-EPI equation. Estimates GFR from serum creatinine, age and sex. 5 The urine microalbum in test is designed to monitor renal function. When screening for Bence Cantu proteinuria, urine electrophoresis is recommended. 6 Unable to calculate Procedures Date Code Description Status 10/07/2024 53316 Glucose Monitoring Interpeta tion And Report Completed 06/10/2024 81715 Glucose Monitoring Interpeta tion And Report Completed 02/04/2024 99119 Glucose Monitoring Interpeta tion And Report Completed 01/21/2022 86732 Collection Of Venous Blood B y Venipuncture Completed Medical Devices Description No Information Available Encounters Type Date Location Provider Dx Diagnosis Office Visit 02/09/2025 3:15p Main Office Veronica Watson M.D. E11.3293 Type 2 diab with mild nonp rtnop without macular edema, bi E78.00 Pure hypercholestero lemia, unspecified E03.9 Hypothyroidism, unsp ecified R74.01 Elevation of levels of liver transaminase levels Z79.4 halfway (current) use of insulin Assessments Date Code Description Provider 02/09/2025 E11.3293 Type 2 diabetes mellitus with mild nonproliferative diabetic retinopathy without macular edema, bilateral Veronica Watson M.D. 02/09/2025 E78.00 Pure hypercholes terolemia, unspecified Veronica Watson M.D. 02/09/2025 E03.9 Hypothyroidism, unspecified Veronica Watson M.D. 02/09/2025 R74.01 Elevation of lev els of liver transaminase levels Veronica Watson M.D. 02/09/2025 Z79.4 long term care administrator (current) use of i nsulin Veronica Watson M.D. Plan of Treatment Future Appointment(s):* 06/02/2025 3:30 pm - Veronica Watson M.D. at Main Office 10/02/2022 - Veronica Watson M.D.* E11.9 Type 2 diabetes mellitus without complications * E03.9 Hypothyroidism, unspecified * R74.01 Elevation of levels of liver transaminase levels Functional Status Description No Information Available Mental Status Description No Information Available Referrals Description No Information Available
--- OUTSIDE RECORDS SUMMARY | 2025-02-14 12:39 | XMS_ITS | Clinical Summary ---
Author Organization [facility] Address [address] [place] [address] Care Team Providers Care Radiation Therapy Technician Name Role Phone Unavailable Primary Care Provider [...] f 2) 2020 COVID-19 Vaccine (3 - 2024-2 6 season) 2024 07/10/2020, 06/19/2020 Influenza Vaccine (#1) 2024 Pneumococcal Vaccine Aged Out No long er eligible based on patient's age to complete this topic RSV Ped < 20 months Aged Out No longe r eligible based on patient's age to complete this topic
--- OUTSIDE RECORDS SUMMARY | 2025-02-14 12:39 | XMS_ITS | Clinical Summary ---
Author Organization [facility] Address [address] [place] [address] Care Team Providers Care Bus Person Name Role Phone Zak Love Primary Care [...] of 2) 2020 COVID-19 Vaccine ( - 2024-2 6 season) 2024 Influenza (#1) 2024 HPV Vaccine (No Doses Required) Completed Hep A Aged Out No longer eligi ble based on patient's age to complete this topic Hib Aged Out No longer eligi ble based on patient's age to complete this topic Meningococcal ACWY Aged Out No longer eligible based on patient's age to complete this topic Care Teams Bus Person Relationship Specialty Start Date End Date Zak Love PCP - General 11/25/22
--- OUTSIDE RECORDS SUMMARY | 2025-02-14 12:39 | XMS_ITS ---
Author Organization [facility] Address [address] [place] [id number] Care Team Providers Care Digital Media Planner Name Role Phone A, Unknown Practice Primary Care Provider Fazal LADD Program Enrollment: [facility] [place] Status:Enrolled (Active) Start date:02/08/2020 Enrollment date:02/10/2020 Case types:Program Enrollment Case Team Name Relationship Phone July Ninfa FOFANA(Responsible Staff) [phone] Continued Care and Services Coordination
--- OUTSIDE RECORDS SUMMARY | 2025-02-14 12:39 | XMS_ITS | Encounter Summary ---
Author Organization [facility] Address [address] [place] [address] Care Team Providers Care Orange Picker Name Role Phone Jeff Yi MD Primary Care Provider [phone] Encounter Details Date Type Department Care Team (Late st Contact Info) Description 02/23/2024 Scanned Document [address] [phone] Provider, Generic Social History Tobacco Use Types [...] on filedocumented in this encounter Care Teams Orange Picker Relationship Specialty Start Date End Date Jeff Yi MD [address] [place] [address] PCP - General Internal Medicine 12/06/15 documented as of this encounter
--- OUTSIDE RECORDS SUMMARY | 2025-02-14 12:39 | XMS_ITS | Clinical Summary ---
Author Organization [facility] Address [address] [place] [address] Care Team Providers Care Electronic Imager Name Role Phone Jeff Yi MD Primary Care Provider [phone] Allergies Active Allergy Reactions Criticality Noted Date Comments Sulfamethoxazole-Trimethoprim Swelling Medium 2015 Iodinated Contrast Media Anaphylaxis High 12/14/2015 Levofloxacin Swelling Medium 12/14/2015 Bupropion Other (See Comments) 12/14/2015 seizures Medications * This document contains information received from the source organization and may not represent a complete record from that organization. ergocalciferol (VITAMIN D2,DRISDOL) 86205 units Cap Take 50,000 Units by mouth once a week. Active vitamin B-12 (CYANOCOBALAMIN ) 50 MCG tablet Take 50 mcg by mouth daily. Active OMEprazole (PriLOSEC OTC) 20 MG tablet Take 20 mg by mouth every morning before breakfast. Active venlafaxine (EFFEXOR-XR) 150 MG 24 hr capsule Take 150 mg by mouth daily. Active busPIRone (BUSPAR) 30 MG tablet Take 30 mg by mouth 2 (two) times a day. Active Mounjaro 7.5 MG/0.5ML pen-injector Inject 7.5 mg under the skin once a week. 12/28/2023 Active Rexulti 1 MG tablet Take 1 mg by mouth daily. 01/12/2024 Active HumuLIN N KWIKPEN 100 UNIT/ML prefilled pen injection Inject under the skin every evening. 01/15/2024 Active glipiZIDE (GLUCOTROL) 5 MG tablet Take 5 mg by mouth every morning before breakfast. 01/13/2024 Active Active Problems Problem Noted Date Diagnosed Date Hyperlipidemia 02/23/2024 Hypertension 02/23/2024 SVT (supraventricular tachycardia) 02/23/2024 Major depressive disorder, recurrent episode, mo derate 12/14/2015 GERD (gastroesophageal reflux disease) 6 Subclinical iodine-deficiency hypothyroidism Social History Tobacco Use Types Packs/Day Years Used Date Smoking Tobacco: Never Assessed Comments Unknown Sex and Gender Information Value Date Recorded Sex Assigned at Not on file Legal Sex Female 1:37 PM EDT Gender Identity Not on file Sexual Orientation Not on file Last Filed Vital Signs Vital Sign Reading Time Taken Comments Blood Pressure 126/79 02/23/2024 3:59 PM EST Pulse 96 02/23/2024 3:59 PM EST Temperature 36.3 C (97.3 F) 02/23/2024 3:59 PM EST Respiratory Rate - - Oxygen Saturation 100% 02/23/2024 3:59 PM EST Inhaled Oxygen Concentration - - Weight - - Height - - Body Mass Index - - Plan of Treatment Health Maintenance Due Date Last Done Comments Hepatitis C Virus Screening 1970 Creatinine with GFR 1980 Foot Exam 1980 Hemoglobin A1C 1980 Lipid Panel 1980 Ophthalmology Exam 1980 HIV Screening 10/07/1983 Microalbumin/Creatinine Ratio Urine 1988 DTaP/Tdap/Td Vaccines (1 - Tdap) 1989 Hepatitis B Vaccines (1 of 3 - 19+ 3-dose series) 1989 Pneumococcal Vaccines 50+ (1 of 2 - PCV) 1989 Pap Smear (Ages 21-65) 10/07/1991 Mammogram 2010 Colonoscopy 10/07/2015 RSV Vaccine 50 years and old er and Patients (1 - Risk 50-74 years 1-dose series) 2020 Zoster (Shingles) Vaccine (1 of 2) 2020 Influenza Vaccine 11/19/2024 01/17/2024 COVID-19 Vaccine (3 - 2024- season) 2024, 06/19/2020 Insurance [facility] [place] P[place] AET[place] HMO/[place] [facility] [place] Care Teams Electronic Imager Relationship Specialty Start Date End Date Jeff Yi MD [address] [place] [address] PCP - General Internal Medicine 12/06/15
--- OUTSIDE RECORDS SUMMARY | 2025-02-14 12:39 | XMS_ITS | Encounter Summary ---
Author Organization [facility] Address [address] [place] [address] Care Team Providers Care Glass Technician/Installer Name Role Phone Jeff Yi MD Primary Care Provider [phone] Encounter Details Date Type Department Care Team (Late st Contact Info) Description 02/23/2024 Scanned Document [address] [phone] Provider, Generic Social History Tobacco Use Types [...] on filedocumented in this encounter Care Teams Glass Technician/Installer Relationship Specialty Start Date End Date Jeff Yi MD [address] [place] [address] PCP - General Internal Medicine 12/06/15 documented as of this encounter
--- OUTSIDE RECORDS SUMMARY | 2025-02-14 12:39 | XMS_ITS | Clinical Summary ---
Author Organization [facility] Address [address] [place] [address] Care Team Providers Care Electrician Underground Name Role Phone A, Unknown Practice Primary [...] of Treatment Not on file Care Teams Electrician Underground Relationship Specialty Start Date End Date A, Unknown Practice PCP - General 02/08/20
== END 2025-02-14 12:07 | disposition home or self-care (01) ==
LOC: HO.HOP 10:28
PROVIDERS: PCP Internal Medicine; Visit Provider Psychiatry & Neurology Psychiatry
DX: F33.9 Major depressive disorder, recurrent, unspecified (principal); F41.1 Generalized anxiety disorder
CPT/HCPCS: 90833; 99213

== ENCOUNTER → 2025-02-14 10:28 | Outpatient (REF) | payer OTHER, SELFPAY ==
--- NOTE | 2025-02-14 11:33 | ECG_ITS ---
Test Reason : E78.00 Blood Pressure : */* mmHG Vent. Rate : 72 BPM Atrial Rate : 72 BPM P-R Int : 150 ms QRS Dur : 82 ms QT Int : 396 ms P-R-T Axes : 33 52 64 degrees QTcB Int : 433 ms Normal sinus rhythm Normal ECG When compared with ECG of 28-Feb-2016 08:59, No significant change was found Referred By: Jeremiah Urrutia Electronically Signed By: KEVIN VAUGHN
--- OUTSIDE RECORDS SUMMARY | 2025-02-14 14:38 | XMS_ITS | Data Portability ---
Author Organization [facility] Address [address] [place] [address] Care Team Providers Care Asset Protection Agent Name Role Phone LIBERTAD SEGOVIA Primary Care Provider [phone] LIBERTAD SEGOVIA Referring Provider [phone] Assessment Encounter Date Assessment Date Assessment LastModified [...] Patient was seen and evaluated by Avani Soni PA-C in indirect conjunction with Documenting Provider: Travis Mitchell MD He/She agrees with history, physical examination, tests/diagnostic imaging, and treatment plan. [email or web address] Not available 07/08/2024 09:22:45 Plan of Treatment Reminders Order Date Submit Date Provider Last Modified By Organization Details Last Modified Time Details Appointments None recorded. Lab None recorded. Referral orthopedi c physical therapist referral - Lesley bose Comments: Chronic low back pain, 1 year right SI joint and hip pain 2024 025 [email or web address] Not available 03/20/202 5 09:18:43 Procedures intra-art icular injection , sacroilia c joint (PROC) - right SI joint steroid injection 2024 025 [facility], [address] [facility], [address], [place], [address], 15:50:55 Surgeries None recorded. Imaging None recorded. Medication Orders None recorded. Patient TargetsNo targets recorded. Patient Instructions Encounter Date Encounter Id Patient Instructions Last Modified By Organization Details Last Modified Time 07/08/2024 [id number] views of the right hip were obtained at an outside facility 06/10/2024 and reviewed by me in the office today. Well-maintained joint space. There is a small well-circumscribed calcification at the right superior acetabulum consistent with osteophyte or chronic avulsion injury. 2 views of the lumbar spine were also obtained and reviewed by me today. These are largely unremarkable. Minimal L5-S1 degeneration. [email or web address] Not available 07/08/2024 09:24:10 Reason for Referral Additional Comments: Chronic low back pain, 1 year right SI joint and hip pain Referring Physician: Avani Soni, Orthopedic Surgery, Encounter Date: 07/08/2024 Results Created Date Observation Date Name Description Value Unit Range Abnormal Flag Note LastModifiedBy Organization Detail LastModifiedTime 07/02/1906/10/2024 XR, hip, unila teral , 2 or 3 view No observ ation record ed. [email or web address] [facility] [address], [place], [address], 07/01/2024 13:00:58 Result Notes None recorded. Problems Name Problem SNOMED Code Status Onset Date Resolution Date Notes Provider Name and Address Organization Details Recorded Time Chronic low back pain 754434617 Active 025 AVANI SONI PA-C [address], [place], [address], [place] [facility] [place], P 5 09:17:01 Sacroiliac disorder 167288412 Active 025 AVANI SONI PA-C [address], [place], [address], [place] [facility], P 5 09:17:07 Pain of hip region 17359067 Active 025 AVANI SONI PA-C [address], [place], [address], [place] [facility], P 5 09:17:13 Low back pain 726217349 Active 025 AVANI SONI PA-C [address], [place], [address], [place] [facility], P 5 09:17:23 Problem Notes None recorded. [...] Diagnosis SNOMED-CT Code Diagnosis ICD10 Code Diagnosis IMO Codes Diagnosis Note [id number] AVANI SONI PA-C [address] [address] 07/08/2024 08:51:20 07/08/2024 09:17:06 Chronic low back pain 546756801 M54.50 G89.29 19564400 Sacroiliac disorder 2027 [address]472 M53.3 14190605 Pain of hip region [address] 002 M25.551 G89.29 [id number] Health Concerns Section Related Observation LastModified by Organization Detai ls LastModified Time None Recorded Concern Status LastModified by Organization Details LastModified Time None Recorded Advance Directives Directive None Recorded Payers Insurance Date Sequence Insurance Name Policy Number Policy King Covered Member ID King Member ID Guarantor Name 08/09/2024 1 [employer] (POS II) [id number] Jaspreet Schreiber [id number] Maria Elena Schreiber Notes Date Note Type Note Provider Name and Address Organization Details Recorded Time 07/08/2024 text/html ROS as noted in the HPI 53-year-old female presents to the office today for evaluation [...] and had excellent relief for years. AVANI SONI PA-C [address], [place], [address], [place] [facility], P 07/08/2024 09:24:27 OBGyn Episode No OBEpisode recorded.
--- OUTSIDE RECORDS SUMMARY | 2025-02-14 14:38 | XMS_ITS | Clinical Summary ---
Author Organization [facility] Address [address] [place] [address] Care Team Providers Care Business Practices Supervisor Name Role Phone Jeff Yi MD Primary Care Provider [phone] Social History Tobacco Use Types Packs/Day Years [...] 2020 Zoster Vaccines (1 of 2) 2020 Depression Screening 04/21/2024 COVID-19 Vaccine (3 - 2024-2 6 season) 2024 07/10/2020, 06/19/2020 Influenza Vaccine (#1) 2024 RSV Immunization Adult Patients (1 - 1-dose 75+ series) 2045 HIB Vaccines Aged Out No longer eligi [...] age to complete this topic Care Teams Business Practices Supervisor Relationship Specialty Start Date End Date Jeff Yi MD PCP - General Internal Medicine 08/21/20
== END ==
LOC: HO.CARD 10:28
PROVIDERS: PCP Internal Medicine; Visit Provider Psychiatry & Neurology Psychiatry
DX: F33.9 Major depressive disorder, recurrent, unspecified (principal); F41.1 Generalized anxiety disorder; E78.00 Pure hypercholesterolemia, unspecified; Z79.899 Other long term (current) drug therapy
CPT/HCPCS: 93005

== ENCOUNTER → 2025-02-14 11:33 | Outpatient (BNV) | payer OTHER, SELFPAY | PROVIDERS: PCP Internal Medicine; Visit Provider Internal Medicine | DX: E78.00 Pure hypercholesterolemia, unspecified (principal) | CPT/HCPCS: 93010 ==

== ENCOUNTER 2025-03-16 10:27 | Outpatient (AMB) | payer OTHER, SELFPAY ==
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
--- OUTSIDE RECORDS SUMMARY | 2025-03-16 12:23 | XMS_ITS | Encounter Summary ---
Author Organization [facility] Address [address] [place] [address] Care Team Providers Care Back Up Machine Operator Name Role Phone Jeff Yi MD Primary Care Provider [phone] Encounter Details Date Type Department Care Team (Late st Contact Info) Description 02/23/2024 Scanned Document [address] [phone] Provider, Generic Social History Tobacco Use Types [...] on filedocumented in this encounter Care Teams Back Up Machine Operator Relationship Specialty Start Date End Date Jeff Yi MD [address] [place] [address] PCP - General Internal Medicine 12/06/15 documented as of this encounter
--- OUTSIDE RECORDS SUMMARY | 2025-03-16 12:23 | XMS_ITS | Encounter Summary ---
Author Organization [facility] Address [address] [place] [address] Care Team Providers Care County Coroner Name Role Phone Jeff Yi MD Primary Care Provider [phone] Encounter Details Date Type Department Care Team (Late st Contact Info) Description 02/23/2024 Scanned Document [address] [phone] Provider, Generic Social History Tobacco Use Types [...] on filedocumented in this encounter Care Teams County Coroner Relationship Specialty Start Date End Date Jeff Yi MD [address] [place] [address] PCP - General Internal Medicine 12/06/15 documented as of this encounter
--- OUTSIDE RECORDS SUMMARY | 2025-03-16 12:23 | XMS_ITS | Data Portability ---
Author Organization [facility] [place] Address [address] [place] [address] Care Team Providers Care Spinning Frame Changer Name Role Phone LIBERTAD SEGOVIA Primary Care Provider [phone] LIBERTAD SEGOVIA Referring Provider Assessment Encounter Date [...] hip pain 2024 025 [email or web address] Not available 09:18:43 Procedures intra-art icular injection , sacroilia c joint (PROC) - right SI joint steroid injection 2024 025 [facility] [address] [facility], [address], [place], [address], 15:50:55 Surgeries None recorded. Imaging None recorded. Medication Orders None recorded. Patient TargetsNo targets recorded. Patient Instructions Encounter Date Encounter Id Patient Instructions Last Modified By Organization Details Last Modified Time 07/08/2024 [id number] views of the right hip were obtained at an outside facility 06/10/2024 and reviewed by me in the office today. Well-maintained joint space. There is a small well-circumscribed calcification at the right superior acetabulum consistent with osteophyte or chronic avulsion injury. 2 views of the lumbar spine were also obtained and reviewed by me today. These are largely unremarkable. Minimal L5-S1 degeneration. [email or web address] Not available 07/08/2024 09:24:10 Reason for Referral Additional Comments: Chronic low back pain, 1 year right SI joint and hip pain Referring Physician: Avani Soni, Orthopedic Surgery, Encounter Date: 07/08/2024 Results Created Date Observation Date Name Description Value Unit Range Abnormal Flag Note LastModifiedBy Organization Detail LastModifiedTime 07/02/1906/10/2024 XR, hip, unila teral , 2 or 3 view No observ ation record ed. [email or web address] [facility] [address] [facility] [address], [place], [address], 07/01/2024 13:00:58 Result Notes None recorded. Problems Name Problem SNOMED Code Status Onset Date Resolution Date Notes Provider Name and Address Organization Details Recorded Time Chronic low back pain 544812298 Active 025 AVANI SONI PA-C [address], [facility] [place], [address], [place] [facility], P 5 09:17:01 Sacroiliac disorder 906793646 Active 025 AVANI SONI PA-C [address], [place], [address], [place] [facility], P 5 09:17:07 Pain of hip region 50301710 Active 025 AVANI SONI PA-C [address], [place], [address], [place] [facility], P 5 09:17:13 Low back pain 418090229 Active 025 AVANI SONI PA-C [address], [place], [address], [place] [facility], P 5 09:17:23 Problem Notes None recorded. [...] ICD10 Code Diagnosis IMO Codes Diagnosis Note [id number] AVANI SONI PA-C [address] [address] 07/08/2024 08:51:20 07/08/2024 09:17:06 Chronic low back pain 102719167 M54.50 G89.29 48425430 Sacroiliac disorder 2027 19914 M53.3 21758955 Pain of hip region [address] 002 M25.551 G89.29 [id number] Health Concerns Section Related Observation LastModified by Organization Detai ls LastModified Time None Recorded Concern Status LastModified by Organization Details LastModified Time None Recorded Advance Directives Directive None Recorded Payers Insurance Date Sequence Insurance Name Policy Number Policy King Covered Member ID King Member ID Guarantor Name 08/09/2024 1 [employer] (POS II) [id number] Jaspreet Schreiber [id number] Maria Elena Schreiber Notes Date Note [...] AVANI SONI PA-C [address], [place], [address], [place] [facility], P 07/08/2024 09:24:27 OBGyn Episode No OBEpisode recorded.
--- OUTSIDE RECORDS SUMMARY | 2025-03-16 12:23 | XMS_ITS | Clinical Summary ---
Author Organization [facility] Address [address] [place] [address] Care Team Providers Care Ase Master Mechanic Name Role Phone Zak Love Primary Care [...] 2024-2 6 season) 2024 Influenza (#1) 2024 RSV (1 - 1-dose 75+ series) 2045 HPV Vaccine (No Doses Required) Completed Hep A Aged Out No longer eligi ble based on patient's age to complete this topic Hib Aged Out No longer eligi ble based on patient's age to complete this topic Meningococcal ACWY Aged Out No longer eligible based on patient's age to complete this topic Care Teams Ase Master Mechanic Relationship Specialty Start Date End Date Zak Love PCP - General 11/25/22
--- OUTSIDE RECORDS SUMMARY | 2025-03-16 12:23 | XMS_ITS | Clinical Summary ---
Author Organization [facility] ity Address [address] [place] [address] Care Team Providers Care Field Assessor Name Role Phone Jeff Yi MD Primary Care Provider [phone] Social History Tobacco Use Types Packs/Day Years [...] age to complete this topic Care Teams Field Assessor Relationship Specialty Start Date End Date Jeff Yi MD PCP - General Internal Medicine 08/21/20
--- OUTSIDE RECORDS SUMMARY | 2025-03-16 12:23 | XMS_ITS | Clinical Summary ---
Author Organization [facility] Address [address] [place] [address] Care Team Providers Care Manager Call Center Name Role Phone Jeff Yi MD Primary Care Provider [phone] Allergies Active Allergy Reactions Criticality Noted Date Comments Sulfamethoxazole-Trimethoprim Swelling Medium 2015 Iodinated Contrast Media Anaphylaxis High 12/14/2015 Levofloxacin Swelling Medium 12/14/2015 Bupropion Other (See Comments) 12/14/2015 seizures Medications * This document contains information received from the source organization and may not represent a complete record from that organization. ergocalciferol (VITAMIN D2,DRISDOL) 72619 units Cap Take 50,000 Units by mouth [...] Done Comments Hepatitis C Virus Screening 1970 HIV Screening 10/07/1983 Microalbumin/Creatinine Ratio Urine 1988 DTaP/Tdap/Td Vaccines (1 - Tdap) 1989 Hepatitis B Vaccines (1 of 3 - 19+ 3-dose series) 1989 Pap Smear (Ages 21-65) 10/07/1991 Mammogram 2010 Colonoscopy 10/07/2015 Pneumococcal Vaccines 50+ (1 of 1 - PCV) 2020 RSV Vaccine 50 years and old er and Patients (1 - Risk 50-74 years 1-dose series) 2020 Zoster (Shingles) Vaccine (1 of 2) 2020 Influenza Vaccine 11/19/2024 01/17/2024 COVID-19 Vaccine (3 - 2024- season) 2024, 06/19/2020 Insurance [facility] PPO [employer] HMO/POS [facility] PPO Care Teams Manager Call Center Relationship Specialty Start Date End Date Jeff Yi MD [address] [place] [id number] PCP - General Internal Medicine 12/06/15
--- OUTSIDE RECORDS SUMMARY | 2025-03-16 12:23 | XMS_ITS | Continuity of Care Document ---
Author Organization [facility] [address] [place] [address] Phone [phone] Care Team Providers Care Input Output Clerk Name Role Phone Jeff Yi M.D. 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 08/26/2024 Twrslhny16bi/0.5ML Solution Auto-Inject inject 10 mg subcutaneously once [...] 100units Patience Watson M.D. 05/14/2022 Humulin N Jvuiljx843Rbet/ML Supn Inject 10 Units Subcutaneously Daily 30ml E11Arpan Watson M.D. 12/12/2021 Precision Xtraw/Device Kit Use Twice Daily 1units Patience Watson M.D. 11/20/2021 Onetouch UltraStrips 1 to skin twice a day 200units Jimmy Watson M.D. 11/08/2021 Buspirone DOJ28nu Tablets Take 1 Tablet Orally 2 Times A Day Unknown Pravastatin Fhlijn90su Tablets Take 1 Tablet By Mouth Every Day AT Bedtime Unknown Trazodone PRH800ly Tablets take 1 tablets by mouth at bedtime Veronica Watson M.D. L-Ivanbxjqznwx40mt Tablets 1 qd Veronica Watson M.D. Vitamin B 26875xhg Tablets 1 by mouth every day Veronica Watson M.D. Vitamin G071btq (1000 Ut) Capsules 3 by mouth every day 100capcarlos alberto Watson M.D. Wfanffupwn82ea Capsules DR 1 by mouth every day Veronica Watson M.D. KP Ferrous Rqjlaxr653(65Fe) mg Tablets 1 by mouth every day Veronica Watson M.D. Mstvxraxus948tp Capsules 1 cap by mouth at bedtime as directed 90lamine Watson M.D. Effexor LS753sx Caps ER 24HR 1 cap by mouth every day 30lamine Watson M.D. Pcjdvvq7ir Tablets Take 1/2 Tablet By Mouth Every Day Unknown Kroxjrnnt9qo Tablets 1/2 Tablet By Mouth In Am, [...] Inhouse Glucose Fingerstick 102 Urinary Microalbumin 03/24/2023 [facility] Micro-Albumin <12.0 mg/L (<20) 2 [...] Hemoglobin A1c 6.8% Comprehensive Metabolic Panl 01/21/2022 [facility] Glucose 103 mg/dL High (70-99) [...] 4 TSH With Reflex To FT4 01/21/2022 [facility] TSH With Reflex To FT4 3.93 uIU/mL (0.4-4.2 ) Urinary Microalbumin 01/21/2022 [facility] Micro-Albumin <12.0 mg/L (<20) 5 [...] calculate Procedures Date Code Description Status 10/07/2024 40287 Glucose Monitoring Interpeta tion And Report Completed 06/10/2024 78446 Glucose Monitoring Interpeta tion And Report Completed 02/04/2024 12223 Glucose Monitoring Interpeta tion And Report Completed 01/21/2022 76018 Collection Of Venous Blood B y Venipuncture Completed Medical Devices Description No Information Available Encounters Type Date Location Provider Dx Diagnosis Office Visit 02/09/2025 3:15p Main Office Veronica Watson M.D. 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 02/09/2025 E78.00 Pure hypercholes terolemia, unspecified Veronica Watson M.D. 02/09/2025 E03.9 Hypothyroidism, unspecified Veronica Watson M.D. 02/09/2025 R74.01 Elevation of lev els of liver transaminase levels Veronica Watson M.D. 02/09/2025 Z79.4 senior living (current) use of i nsulin Veronica Watson [...]
--- OUTSIDE RECORDS SUMMARY | 2025-03-16 12:24 | XMS_ITS | Clinical Summary ---
Author Organization [facility] Address [address] [place] [address] Care Team Providers Care Liquid Sugar Melter Name Role Phone Unavailable Primary Care Provider [...]
== END 2025-03-16 11:13 | disposition home or self-care (01) ==
LOC: HO.HOP 10:27
PROVIDERS: PCP Internal Medicine; Visit Provider Psychiatry & Neurology Psychiatry
DX: F41.1 Generalized anxiety disorder (principal); F33.9 Major depressive disorder, recurrent, unspecified
CPT/HCPCS: 99214

== ENCOUNTER 2025-04-19 10:50 | Outpatient (AMB) | payer OTHER, SELFPAY ==
--- OUTSIDE RECORDS SUMMARY | 2024-03-12 10:15 | XMS_ITS ---
Author Organization [facility] Address [address] [place] [address] Care Team Providers Care Diamond Sander Name Role Phone SHIRIN MAYA Primary Care Provider REASON FOR VISIT 28/CPX Encounters Encounter Location Date Provider Diagnosis [address] [address] 03/12/2024 SHIRIN MAYA Plan Of Treatment Next Appt Details Provider Name:LIBERTAD MAS [facility], 06/13/2025 08:00:00 AM, [address] [place], [address], Progress Notes * MARCUS VAZQUEZOB :1970 (54 yo F)Acc No.[id number]:03/12/2024 Progress Notes Patient: Eva ADAMSAIXA BARR Provider: Yury TOLLIVER M.D. :1970 A ge:53 Y S ex:Female Date:03/12/2024 Address:[address] [facility], [id number] Subjective: * Chief Complaints: * 2 8/CPX * Electronic signature of AAKASH MAYA M.D. on 04/19/2025 at 02:39 PM EST Sign off status: Pending * Provider: Yury TOLLIVER M.D. Date: 05/12/2023 Generated for Elías rendon/Flores/Lily on: 02:39 PM EST
--- OUTSIDE RECORDS SUMMARY | 2024-06-08 03:00 | XMS_ITS ---
Author Organization [facility] Address [address] [place] [address] Care Team Providers Care Project Construction Assistant Manager Name Role SHIRIN Guajardo Primary Care Provider LIBERTAD SEGOVIA [phone] REASON FOR VISIT JW/28/CPX Encounters Encounter Location Date Provider Diagnosis [address] [address] 06/08/2024 LIBERTAD SEGOVIA Plan Of Treatment Next Appt Details Provider Name:LIBERTAD DOVER, 06/13/2025 08:00:00 AM, [address] [place] [address], [id number], Progress Notes * MARCUS VAZQUEZOB :1970 (54 yo F)Acc No.[id number]:06/08/2024 Progress Notes Patient: Eva GUZMÁNLOUDKAROLINAAIXA Provider: Donald Segovia PA-C :1970 A ge:53 Y S ex:Female Date:06/08/2024 Address:[address] [place], [place] [id number] Pcp:SHIRIN MAYA Subjective: * Chief Complaints: * J W/[place]/CPX * Electronic signature of KIKO SEGOVIA PA-C on 04/19/2025 at 02:40 PM EST Sign off status: Pending * Provider: Donald Segovia PA-C Date: 0 06/08/2024 Generated for Elías rendon/Flores/Lily on: 1 02:40 PM EST
--- OUTSIDE RECORDS SUMMARY | 2024-06-08 05:00 | XMS_ITS ---
Author Organization [facility] Address [address] [place] [address] Care Team Providers Care Singing Waiter Or Waitress Name Role SHIRIN Guajardo Primary Care Provider [facility] Unavailable [phone] REASON FOR VISIT JW/Td Encounters Encounter Location Date Provider Diagnosis [address] [address] 06/08/2024 [facility] Plan Of Treatment Next Appt Details Provider Name:LIBERTAD MAS JAZZMINE, 06/13/2025 08:00:00 AM, [address] [place] [address], [phone], Progress Notes * MARCUS VAZQUEZOB :1970 (54 yo F)Acc No.[id number]:06/08/2024 Progress Notes Patient: Eva ADAMSCORTNEY AIXA Provider: Claudio Orozco :1970 A ge:53 Y S ex:Female Date:06/08/2024 Address:[address] [place] [address] Pcp:SHIRIN MAYA Subjective: * Chief Complaints: * J W/Td * Electronic signature of [facility] on 04/19/2025 at 02:39 PM EST Sign off status: Pending * Provider: Claudio Orozco Date: 0 06/08/2024 Generated for Elías rendon/Flores/Lily on: 1 02:39 PM EST
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
--- OUTSIDE RECORDS SUMMARY | 2025-04-19 14:39 | XMS_ITS | Data Portability ---
Author Organization [facility] Address [address] [place] [address] Care Team Providers Care Hand Mexican Food Maker Name Role Phone LIBERTAD SEGOVIA Primary Care Provider [phone] LIBERTAD SEGOVIA Referring Provider Assessment Encounter Date [...] right SI joint steroid injection 2024 025 PUERTO REAL [facility] ([facility]), [address] [facility], [place], [address], 15:50:55 Surgeries None recorded. Imaging None recorded. Medication Orders None recorded. Patient TargetsNo targets recorded. Patient Instructions Encounter Date Encounter Id Patient Instructions Last Modified By Organization Details Last Modified Time 07/08/2024 [id number] 3 views of the right hip were [...] view No observ ation record ed. [email or web address] [facility] [address] [facility] [address], [place], [address], 07/01/2024 13:00:58 Result Notes None recorded. Problems Name Problem SNOMED Code Status Onset Date Resolution Date Notes Provider Name and Address Organization Details Recorded Time Chronic low back pain 194959711 Active 025 AVANI SONI PA-C [address], [place] [facility] [place], [address], [place] [facility], P 5 09:17:01 Sacroiliac disorder 987862804 Active 025 AVANI SONI PA-C [address], [place], [address], [place] [facility], P 5 09:17:07 Pain of hip region 91487290 Active 025 AVANI SONI PA-C [address], [place], [address], [place] [facility], P 5 09:17:13 Low back pain 427921953 Active 025 AVANI SONI PA-C [address], [place], [address], [place] [facility], P 5 09:17:23 Problem Notes None recorded. [...] ICD10 Code Diagnosis IMO Codes Diagnosis Note [id number] AVANI SONI PA-C [address] [address] 07/08/2024 08:51:20 07/08/2024 09:17:06 Chronic low back pain 840117657 M54.50 G89.29 [id number] Sacroiliac disorder 2027 [address] M53.3 59207211 Pain of hip region 48039 002 M25.551 G89.29 [id number] Health Concerns Section Related Observation LastModified by Organization Detai ls LastModified Time None Recorded Concern Status LastModified by Organization Details LastModified Time None Recorded Advance Directives Directive None Recorded Payers Insurance Date Sequence Insurance Name Policy Number Policy King Covered Member ID King Member ID Guarantor Name 08/09/2024 1 [employer] (POS II) [id number] Jaspreet Schreiber [id number] Maria Elena Schreiber Notes Date Note [...] AVANI SONI PA-C [address], [place], [address], [place] [facility], P 07/08/2024 09:24:27 OBGyn Episode No OBEpisode recorded.
--- OUTSIDE RECORDS SUMMARY | 2025-04-19 14:40 | XMS_ITS | Encounter Summary ---
Author Organization [facility] Address [address] [place] [address] Care Team Providers Care Payment Poster Name Role Phone Jeff Yi MD Primary Care Provider [phone] Encounter Details Date Type Department Care Team (Late st Contact Info) Description 02/23/2024 Scanned Document [address] [phone] Provider, Generic Social History Tobacco Use Types [...] on filedocumented in this encounter Care Teams Payment Poster Relationship Specialty Start Date End Date Jeff Yi MD [address] [place] [id number] PCP - General Internal Medicine 12/06/15 documented as of this encounter
--- OUTSIDE RECORDS SUMMARY | 2025-04-19 14:40 | XMS_ITS | Encounter Summary ---
Author Organization [facility] Address [address] [place] [address] Care Team Providers Care Senior Contract Specialist Name Role Phone Jeff Yi MD Primary Care Provider [phone] Encounter Details Date Type Department Care Team (Late st Contact Info) Description 02/23/2024 Scanned Document [address] [phone] Provider, Generic Social History Tobacco Use Types [...] on filedocumented in this encounter Care Teams Senior Contract Specialist Relationship Specialty Start Date End Date Jeff Yi MD [address] [place] [phone] PCP - General Internal Medicine 12/06/15 documented as of this encounter
--- OUTSIDE RECORDS SUMMARY | 2025-04-19 14:40 | XMS_ITS | Clinical Summary ---
Author Organization [facility] ity Address [address] [place] [address] Care Team Providers Care Lpn Per Diem Name Role Phone Jeff Yi MD Primary Care Provider [phone] Social History Tobacco Use Types Packs/Day Years [...] age to complete this topic Care Teams Lpn Per Diem Relationship Specialty Start Date End Date Jeff Yi MD PCP - General Internal Medicine 08/21/20
--- OUTSIDE RECORDS SUMMARY | 2025-04-19 14:40 | XMS_ITS | Clinical Summary ---
Author Organization [facility] Address [address] [place] [address] Care Team Providers Care Fabrication Welder Name Role Phone Zak Love Primary Care [...] age to complete this topic Care Teams Fabrication Welder Relationship Specialty Start Date End Date Zak Love PCP - General 11/25/22
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
--- OUTSIDE RECORDS SUMMARY | 2025-04-19 14:40 | XMS_ITS | Continuity of Care Document ---
Author Organization [facility] [address] [place] [address] Phone [phone] Care Team Providers Care Retail Loss Prevention Officer Name Role Phone Jeff Yi M.D. 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 08/26/2024 Xenidxqt28jd/0.5ML Solution Auto-Inject inject 10 mg subcutaneously once [...] 100units Patience Watson M.D. 05/14/2022 Humulin N Owrmvdz162Mmrc/ML Supn Inject 10 Units Subcutaneously Daily 30ml E11Arpan Watson M.D. 12/12/2021 Precision Xtraw/Device Kit Use Twice Daily 1units Patience Watson M.D. 11/20/2021 Onetouch UltraStrips 1 to skin twice a day 200units Jimmy Watson M.D. 11/08/2021 Buspirone HNP97ct Tablets Take 1 Tablet Orally 2 Times A Day Unknown Pravastatin Iljrry41oa Tablets Take 1 Tablet By Mouth Every Day AT Bedtime Unknown Trazodone [id number] Tablets take 1 tablets by mouth at bedtime Veronica Watson M.D. L-Kcspbmrgdgsv48vz Tablets 1 qd Veronica Watson M.D. Vitamin B 34846iwj Tablets 1 by mouth every day Veronica Watson M.D. Vitamin Q349pgv (1000 Ut) Capsules 3 by mouth every day 100capcarlos alberto Watson M.D. Asnhvhnlcq65th Capsules DR 1 by mouth every day Veronica Watson M.D. KP Ferrous Itkaese143(65Fe) mg Tablets 1 by mouth every day Veronica Watson M.D. Nnqqmsqjpb064vm Capsules 1 cap by mouth at bedtime as directed 90lamine Watson M.D. Effexor DB268fo Caps ER 24HR 1 cap by mouth every day 30lamine Watson M.D. Vbeglfq2zb Tablets Take 1/2 Tablet By Mouth Every Day Unknown Bkzqmqxkk4nv Tablets 1/2 Tablet By Mouth In Am, [...] Inhouse Glucose Fingerstick 102 Urinary Microalbumin 03/24/2023 [facility] Micro-Albumin <12.0 mg/L (<20) 2 [...] Hemoglobin A1c 6.8% Comprehensive Metabolic Panl 01/21/2022 [facility] Glucose 103 mg/dL High (70-99) [...] 4 TSH With Reflex To FT4 01/21/2022 [facility] TSH With Reflex To FT4 3.93 uIU/mL (0.4-4.2 ) Urinary Microalbumin 01/21/2022 [facility] Micro-Albumin <12.0 mg/L (<20) 5 [...] calculate Procedures Date Code Description Status 10/07/2024 41690 Glucose Monitoring Interpeta tion And Report Completed 06/10/2024 59379 Glucose Monitoring Interpeta tion And Report Completed 02/04/2024 55408 Glucose Monitoring Interpeta tion And Report Completed 01/21/2022 58550 Collection Of Venous Blood B y Venipuncture Completed Medical Devices Description No Information Available Encounters Type Date Location Provider Dx Diagnosis Office Visit 02/09/2025 3:15p Main Office Veronica Watson M.D. 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 02/09/2025 E78.00 Pure hypercholes terolemia, unspecified Veronica Watson M.D. 02/09/2025 E03.9 Hypothyroidism, unspecified Veronica Watson M.D. 02/09/2025 R74.01 Elevation of lev els of liver transaminase levels Veronica Watson M.D. 02/09/2025 Z79.4 [facility] (current) use of i nsulin Veronica Watson [...]
--- OUTSIDE RECORDS SUMMARY | 2025-04-19 14:40 | XMS_ITS | Clinical Summary ---
Author Organization [facility] Prior to 09/18/24 Address [address] [place] [address] Care Team Providers Care Water And Gas Helper Name Role Phone Unavailable Primary Care Provider [...]
--- OUTSIDE RECORDS SUMMARY | 2025-04-19 14:40 | XMS_ITS | Clinical Summary ---
Author Organization [facility] Address [address] [place] [address] Care Team Providers Care Stretch Press Operator Name Role Phone Jeff Yi MD Primary Care Provider [phone] Allergies Active Allergy Reactions Criticality Noted Date Comments Sulfamethoxazole-Trimethoprim Swelling Medium 2015 Iodinated Contrast Media Anaphylaxis High 12/14/2015 Levofloxacin Swelling Medium 12/14/2015 Bupropion Other (See Comments) 12/14/2015 seizures Medications * This document contains information received from the source organization and may not represent a complete record from that organization. ergocalciferol (VITAMIN D2,DRISDOL) 18289 units Cap Take 50,000 Units by mouth [...] (3 - 2024- season) 2024, 06/19/[address] [facility] PPO [employer] HMO/POS [facility] PPO Care Teams Stretch Press Operator Relationship Specialty Start Date End Date Jeff Yi MD [address] [place] [id number] PCP - General Internal Medicine 12/06/15
== END 2025-04-19 12:37 | disposition home or self-care (01) ==
LOC: HO.HOP 10:50
PROVIDERS: PCP Internal Medicine; Visit Provider Psychiatry & Neurology Psychiatry
DX: F41.1 Generalized anxiety disorder (principal); F33.9 Major depressive disorder, recurrent, unspecified
CPT/HCPCS: 99213